=== PATIENT | male | born 1965 | race Caucasian/White ===

== ENCOUNTER 2021-08-29 15:51 | Observation (INO) ==
[2021-08-29 17:41] LABS: Basophils # (auto) 0.04 K/uL (0-0.2); Basophils % (auto) 0.3 %; Eosinophils # (auto) 0.07 K/uL (0-0.5); Eosinophils % (auto) 0.5 %; Hemoglobin 15.5 g/dL (14.0-18.0); Immature Granulocytes # (auto) 0.04 K/uL (0.00-0.02); Immature Granulocytes % (auto) 0.3 %; Lymphocytes # (auto) 1.87 K/uL (1.2-3.4); Lymphocytes % (auto) 13.4 %; Mean Corpuscular Hemoglobin 29.5 pg (25-34); Mean Corpuscular Hgb Conc 33.7 g/dL (32-36); Mean Corpuscular Volume 87.6 fL (80-100); Mean Platelet Volume 10.6 fL (7.4-10.4); Monocytes # (auto) 1.56 K/uL (0.11-0.59); Monocytes % (auto) 11.2 %; Neutrophils # (auto) 10.36 K/uL (1.4-6.5); Neutrophils % (auto) 74.3 %; Platelet Count 242 K/uL (130-400); RDW Coefficient of Variation 12.9 % (11.5-14.5); RDW Standard Deviation 41.4 fL (36.4-46.3); Red Blood Count 5.25 M/uL (4.7-6.1); White Blood Count 13.94 K/uL (4.8-10.8)
[2021-08-29 18:11] LABS: Albumin Level 3.8 gm/dl (3.4-5.0); BUN Creatinine Ratio 21.2 (10-20); Calcium 9.2 mg/dl (8.5-10.1); Creatinine Clr Calc Pharmacy 113.4 ml/min; Est GFR (African American) 112.3 ml/min; Est GFR (Non-African American) 96.9 ml/min; Potassium 3.8 mmol/L (3.5-5.1)
[2021-08-29 18:13] LABS: Bilirubin,Total 0.5 mg/dl (0.2-1); Globulin 3.7 gm/dl (2.5-4.0); Total Protein 7.5 gm/dl (6.4-8.2)
[2021-08-29] MEDS ORDERED: OPTIRAY 320 100ml IV ONE (19:43)
[2021-08-29 20:01] LABS: Appearance Urine Clear (Clear); Bilirubin Urine Negative (Negative); Blood Urine Negative (Negative); Color Urine Yellow; Glucose Urine UA Negative (Negative); Ketones Urine Negative (Negative); Leukocyte Esterase Urine Negative (Negative); Nitrite Urine Negative (Negative); Protein Urine Negative (Negative); Specific Gravity Urine 1.018 (1.000-1.030); Urobilinogen Urine Negative (Negative)
--- NOTE | 2021-08-29 20:14 | Emergency Department Note ---
Impression & Plan Acute appendicitis, RLQ abdominal pain, Leukocytosis ED Provider Note NAME: VINNY MENESES AGE: 56 SEX: M ARRIVES VIA: Walk-In INFORMANT: Patient ED PROVIDER(S): Gelacio Beavers MD CHIEF COMPLAINT: Abdominal pain PLAN: Disposition: Admit MEDICAL DECISION MAKING: The patient is a pleasant 56-year-old gentleman who presents emergency department for evaluation of right lower quadrant pain that has been ongoing for the past 24 hours which she reports began in his right lower quadrant and has remained there. He reports that pain as a 2/10 and is more severe when he is moving around. He denies nausea, vomiting, decreased appetite or inability to eat or drink. He denies any diarrhea or urinary symptoms. He denies blood in his urine. He feels as though he may have had some constipation recently. He denies any prior history of kidney stones. He denies any fevers cough or congestion. On arrival patient is well-appearing in no distress, afebrile stable vital signs. He appears clinically dry. He has mild right lower quadrant tenderness without guarding or rebound. Blood work and CT of the abdomen pelvis was ordered/ performed per critical pathways given the patient's presentation during a time of high volume and acuity. WBC 13.9K nonspecific. H/H and platelets within normal limits. Chemistry without metabolic acidosis. Electrolytes without significant abnormality. Lipase not elevated. UA without evidence of infection. COVID-19, RNA, NAAT test was negative. CT of the abdomen pelvis demonstrates uncomplicated appendicitis. Case was discussed with Sahil Frias general surgery PAC with Dr. Kalina alas who will admit the patient for surgery. Patient was updated at bedside and agrees with the plan. Triage Nursing notes reviewed and agree them. Prior medical records reviewed Vital Signs: reviewed and remarkable for no significant abnormalities Differential diagnosis: Appendicitis, testicular torsion, infections, diverticulitis, UTI, obstruction, mesenteric ischemia, aortic pathology, inflammatory bowel disease, renal colic, PUD, pancreatitis, biliary pathology, hernia, volvulus, constipation, as well as other pathologies. ER treatment provided: See below. Diagnostics interpreted by me: Cardiac Monitoring: An order for continuous cardiac monitoring was placed and demonstrated NSR, 76 bpm, no ectopy. Laboratory studies: See below Imaging studies: See below Consultation(s): Sahil Frias general surgery PAC with Dr. Gilman general surgery who wi ll admit the patient for surgery. HPI: The patient is a pleasant 56-year-old gentleman who presents emergency department for evaluation of right lower quadrant pain that has been ongoing for the past 24 hours which she reports began in his right lower quadrant and has remained there. He reports that pain as a 2/10 and is more severe when he is moving around. He denies nausea, vomiting, decreased appetite or inability to eat or drink. He denies any diarrhea or urinary symptoms. He denies blood in his urine. He feels as though he may have had some constipation recently. He denies any prior history of kidney stones. He denies any fevers cough or congestion. ROS: See above HPI for pertinent positives & negatives. A total of 10 systems reviewed and were otherwise negative. PAST MEDICAL HISTORY:See Below PAST SURGICAL HISTORY:See Below FAMILY HISTORY:See Below SOCIAL HISTORY:See Below HOME MEDICATIONS:See Below ALLERGIES:See Below VITALS:See Below PHYSICAL EXAMINATION: GENERAL: Awake, alert, well-appearing, in no distress HENT: Normocephalic, atraumatic. Oropharynx with dry mucous membranes and otherwise unremarkable. EYES: Normal conjunctiva. Sclera non-icteric. NECK: Supple. No nuchal rigidity. FROM. No JVD. RESPIRATORY: Clear to auscultation. CARDIAC: Regular rate, normal rhythm. Extremities warm and well perfused. Pulses equal. ABDOMEN: Soft, non-distended. Mild right tenderness to palpation. No rebound or guarding. No masses. RECTAL: Deferred. MUSCULOSKELETAL: Chest examination reveals no tenderness. The back is symmetrical on inspection without obvious abnormality. There is no CVA tenderness to palpation. No joint edema. LOWER EXTREMITIES: Calves are equal size bilaterally and non-tender. No edema. No discoloration. NEURO: Normal sensorium. No sensory or motor deficits noted. SKIN: No rash or jaundice noted. Gelacio Beavers MD Past Med/Surg History Medical History Hypertension Family History Other Family history non-contributory Social History Smoking Status: Never smoker Hx Alcohol Use: Yes Alcohol type: beer Hx Substance Use: No Preferred Language: Hebrew Communication Ability: Effective Call Center Trainer Required: No Beliefs That Will Affect Care: None Current Living Situation: Alone Other Information That Helps Us Care for You: No Feels Safe at Home: Yes Safety Concerns: Feels Safe At This Time Assistive Devices: None Allergies Allergies Allergy/AdvReac Type Severity Reaction Status Date / Time No Known Allergies Allergy Unverified 08/29/21 20:44 Home Meds Home Medications Medication Instructions Recorded Confirmed atorvastatin 20 mg tablet 20 mg PO DAILY 08/29/21 08/29/21 lisinopril 20 1 tab PO DAILY 08/29/21 08/29/21 mg-hydrochlorothiazide 25 mg tablet Results & Data (ED) Vital Signs Vital Signs - 24 hr 08/29/21 16:07 08/29/21 20:19 08/29/21 22:14 Temperature 36.5 C Temperature Source Temporal Artery Scan Pulse Rate 90 Pulse Rate [Finger] 78 74 Respiratory Rate 16 20 18 Respiratory Effort / Characteristics Non-Labored Non-Labored Spontaneous Non-Labored Spontaneous Respiratory Depth Normal Normal Normal Blood Pressure 152/84 H Blood Pressure [Left Arm] 148/98 H 150/86 H Blood Pressure Mean 106 Blood Pressure Mean [Left Arm] 114 107 Pulse Oximetry 96 99 98 Oxygen Delivery Method Room Air Room Air Room Air Sepsis Recent Fever Within 48 Hours No Sepsis New/Unexplained Change in Mental Status No Sepsis Action Taken by Nursing No Action Required Laboratory Data Attestation: I reviewed the patient's lab results. Result diagrams: 08/29/21 17:30 08/29/21 17:30 Lab Results 08/29/21 08/29/21 08/29/21 Range/Units 17:30 17:30 17:30 WBC 13.94 H (4.8-10.8) K/uL RBC 5.25 (4.7-6.1) M/uL Hgb 15.5 (14.0-18.0) g/dL Hct 46.0 (42-52) % MCV 87.6 (80-100) fL MCH 29.5 (25-34) pg MCHC 33.7 (32-36) g/dL RDW Std Deviation 41.4 (36.4-46.3) fL RDW Coeff of Mirtha 12.9 (11.5-14.5) % Plt Count 242 (130-400) K/uL MPV 10.6 H (7.4-10.4) fL Immature Gran % (Auto) 0.3 % Neut % (Auto) 74.3 % Lymph % (Auto) 13.4 % [place] % (Auto) 11.2 % Eos % (Auto) 0.5 % Baso % (Auto) 0.3 % Neut # (Auto) 10.36 H (1.4-6.5) K/uL Lymph # (Auto) 1.87 (1.2-3.4) K/uL [place] # (Auto) 1.56 H (0.11-0.59) K/uL Eos # (Auto) 0.07 (0-0.5) K/uL Baso # (Auto) 0.04 (0-0.2) K/uL Immature Gran # (Auto) 0.04 H (0.00-0.02) K/uL Sodium 135 L (136-145) mmol/L Potassium 3.8 (3.5-5.1) mmol/L Chloride 102 (98-107) mmol/L Carbon Dioxide 30 (21-32) mmol/L Anion Gap 3.0 (3-11) BUN 19 H (7-18) mg/dl Creatinine 0.89 (0.6-1.4) mg/dl Est Cr Clr Drug Dosing 113.4 ml/min Est GFR ( Amer) 112.3 ml/min Est GFR (Non-Af Amer) 96.9 ml/min BUN/Creatinine Ratio 21.2 H (10-20) Glucose 109 H (70-99) mg/dl Calcium 9.2 (8.5-10.1) mg/dl Total Bilirubin 0.5 (0.2-1) mg/dl AST 19 (15-37) U/L ALT 38 (12-78) Alkaline Phosphatase 79 (45-117) U/L Total Protein 7.5 (6.4-8.2) gm/dl Albumin 3.8 (3.4-5.0) gm/dl Globulin 3.7 (2.5-4.0) gm/dl Albumin/Globulin Ratio 1.0 (0.9-2) Lipase 160 (73-393) U/L Urine Color Yellow Urine Appearance Clear (Clear) Urine pH 5.0 (4.5-7.5) Ur Specific [place] 1.018 (1.000-1.030) Urine Protein Negative (Negative) Urine Glucose (UA) Negative (Negative) Urine Ketones Negative (Negative) Urine Blood Negative (Negative) Urine Nitrite Negative (Negative) Urine Bilirubin Negative (Negative) Urine Urobilinogen Negative (Negative) Ur Leukocyte Esterase Negative (Negative) SARS-CoV-2, RNA, NAAT (NEGATIVE) 08/29/21 Range/Units 22:06 WBC (4.8-10.8) K/uL RBC (4.7-6.1) M/uL Hgb (14.0-18.0) g/dL Hct (42-52) % MCV (80-100) fL MCH (25-34) pg MCHC (32-36) g/dL RDW Std Deviation (36.4-46.3) fL RDW Coeff of Mirtha (11.5-14.5) % Plt Count (130-400) K/uL MPV (7.4-10.4) fL Immature Gran % (Auto) % Neut % (Auto) % Lymph % (Auto) % [place] % (Auto) % Eos % (Auto) % Baso % (Auto) % Neut # (Auto) (1.4-6.5) K/uL Lymph # (Auto) (1.2-3.4) K/uL [place] # (Auto) (0.11-0.59) K/uL Eos # (Auto) (0-0.5) K/uL Baso # (Auto) (0-0.2) K/uL Immature Gran # (Auto) (0.00-0.02) K/uL Sodium (136-145) mmol/L Potassium (3.5-5.1) mmol/L Chloride (98-107) mmol/L Carbon Dioxide (21-32) mmol/L Anion Gap (3-11) BUN (7-18) mg/dl Creatinine (0.6-1.4) mg/dl Est Cr Clr Drug Dosing ml/min Est GFR ( Amer) ml/min Est GFR (Non-Af Amer) ml/min BUN/Creatinine Ratio (10-20) Glucose (70-99) mg/dl Calcium (8.5-10.1) mg/dl Total Bilirubin (0.2-1) mg/dl AST (15-37) U/L ALT (12-78) Alkaline Phosphatase (45-117) U/L Total Protein (6.4-8.2) gm/dl Albumin (3.4-5.0) gm/dl Globulin (2.5-4.0) gm/dl Albumin/Globulin Ratio (0.9-2) Lipase (73-393) U/L Urine Color Urine Appearance (Clear) Urine pH (4.5-7.5) Ur Specific [place] (1.000-1.030) Urine Protein (Negative) Urine Glucose (UA) (Negative) Urine Ketones (Negative) Urine Blood (Negative) Urine Nitrite (Negative) Urine Bilirubin (Negative) Urine Urobilinogen (Negative) Ur Leukocyte Esterase (Negative) SARS-CoV-2, RNA, NAAT NEGATIVE (NEGATIVE) Administered Medications Lactated Ringer's (Lr) 1,000 mls @ 75 mls/hr IV .[id number] JUAN M Stop: 09/29/21 00:52 Last Admin: 08/30/21 02:31 Dose: 75 mls/hr Documented by: [id number] Discontinued Medications Sodium Chloride (Nss 1000ml) 1,000 mls @ 999 mls/hr IV .[id number] ONE Stop: 08/29/21 21:49 Last Infusion: 08/29/21 22:28 Dose: 0 mls/hr Documented by: [id number] Admin: 08/29/21 21:24 Dose: 999 mls/hr Documented by: [id number] Acetaminophen (Ofirmev) 1,000 mg in 100 mls @ 400 mls/hr IV NOW STA Stop: 08/29/21 21:03 Last Infusion: 08/29/21 21:39 Dose: 0 mls/hr Documented by: [id number] Admin: 08/29/21 21:24 Dose: 400 mls/hr Documented by: [id number] Cefoxitin Sodium (Mefoxin) 2,000 mg in 60 mls @ 100 mls/hr IV NOW STA Stop: 08/29/21 21:24 Last Infusion: 08/29/21 22:15 Dose: 0 mls/hr Documented by: [id number] Admin: 08/29/21 21:36 Dose: 100 mls/hr Documented by: [id number] Ioversol (Optiray 320 100ml) 91 ml IV ONCE ONE Stop: 08/29/21 19:44 Last Admin: 08/29/21 19:43 Dose: 91 ml Documented by: [id number] Lidocaine/Epinephrine (Lidocaine/Epinephrine 1% 20 Ml Vial) Confirm Administered Dose 20 ml .ROUTE .K-MED ONE Stop: 08/29/21 21:43 Last Admin: 08/29/21 23:46 Dose: 20 ml Documented by: [id number] Imaging Data Radiologist's Impression: Abdomen/Pelvis CT 08/29/21 18:[address] WITH IV CONTRAST CT DOSE: 507.53 mGy.cm HISTORY: Acute right lower quadrant abdominal pain RLQ pain TECHNIQUE: Multiaxial CT images of the abdomen and pelvis were performed following the IV administration of 91 cc of Optiray, A dose lowering technique was utilized adhering to the principles of ALARA. COMPARISON STUDY: Thoracic spine radiographs 02/10/2006 FINDINGS: Clear lung bases. No pneumatosis or pneumoperitoneum. The imaged inferior cardiac chambers are unremarkable. The spleen is unremarkable with large adjacent splenule. Pancreas, adrenal glands, contracted gallbladder and liver appear unremarkable. Patency of the portal vein. Unremarkable kidneys. No hydronephrosis. Mild urinary bladder distention with prostamegaly. Aorta and IVC are unremarkable. No adenopathy. No bowel obstruction. Mild fecal retention. The appendix is dilated measuring up to 10 mm and fluid-filled with mucosal hyperemia and wall thickening with periappendiceal stranding. No abscess or perforation. Mild wall thickening involving several loops of ileum is likely secondary to partial distention. Unremarkable soft tissues. There is no acute fracture IMPRESSION: 1. Acute appendicitis. No evidence of perforation or abscess. 2. No bowel obstruction. ACT 112: Negative or not required by law. The above report was generated using voice recognition software. It may contain grammatical, syntax or spelling errors. Electronically signed by: Jer Cifuentes M.D. 08/29/2021 8:41 PM Discharge Plan Visit Data Chief Complaint: Abdominal Pain Stated Complaint: LRQ ABDOMINAL PAIN Discharge Problem: Acute appendicitis, RLQ abdominal pain, Leukocytosis Patient Disposition: Still a Patient Discharge Instructions Interventions: ED Discharge Assessment Last Done: 08/29/21 22:32 Discharge Problem: Acute appendicitis Qualifiers: Acute appendicitis type: with localized peritonitis Appendicitis gangrene presence: without gangrene Appendicitis perforation presence: without perforation Appendicitis abscess presence: without abscess Qualified Code(s): K35.30 - Acute appendicitis with localized peritonitis, without perforation or gangrene Leukocytosis Qualifiers: Leukocytosis type: other Qualified Code(s): D72.828 - Other elevated white blood cell count
--- NOTE | 2021-08-29 20:42 | CT Scan Report ---
ABDOMEN AND PELVIS CT WITH IV CONTRAST CT DOSE: 507.53 mGy.cm HISTORY: Acute right lower quadrant abdominal pain RLQ pain TECHNIQUE: Multiaxial CT images of the abdomen and pelvis were performed following the IV administrat ion of 91 cc of Optiray, A dose lowering technique was utilized adhering to the principles of ALARA. COMPARISON STUDY: Thoracic spine radiographs 02/10/2006 FINDINGS: Clear lung bases. No pneumatosis or pneumoperitoneum. The imaged inferior cardiac chambers are unremarkable. The spleen is unremarkable with large adjacent splenule. Pancreas, adrenal glands, contracted gallbladder and liver appear unremarkable. Patency of the portal vein. Unremarkable kidney s. No hydronephrosis. Mild urinary bladder distention with prostamegaly. Aorta and IVC are unremarkab le. No adenopathy. No bowel obstruction. Mild fecal retention. The appendix is dilated measuring up to 10 mm and fluid-f illed with mucosal hyperemia and wall thickening with periappendiceal stranding. No abscess or perfor ation. Mild wall thickening involving several loops of ileum is likely secondary to partial distentio n. Unremarkable soft tissues. There is no acute fracture IMPRESSION: 1. Acute appendicitis. No evidence of perforation or abscess. 2. No bowel obstruction. ACT 112: Negative or not required by law. The above report was generated using voice recognition software. It may contain grammatical, syntax o r spelling errors. Electronically signed by: Jer Cifuentes M.D. 08/29/2021 8:41 PM
[2021-08-29] MEDS ORDERED: cefOXitin 2,000 MG/60 ML BAG IV STA (20:49)
[2021-08-29] MEDS ORDERED: ACETAMINOPHEN 1,000 MG/100 ML VIAL IV STA (20:49)
[2021-08-29] MEDS ORDERED: SODIUM CHLORIDE 0.9% 1000ML 1,000 ML IV ONE (20:49)
[2021-08-29] MEDS ORDERED: MoRPHine SULFATE 4 MG/ML 1 ML CARP\\VIAL IV PRN (20:52)
[2021-08-29] MEDS ORDERED: MoRPHine SULFATE 2 MG/ML CARP IV PRN (20:52)
[2021-08-29] MEDS ORDERED: ONDANSETRON INJ 2 MG/ML 2 ML VIAL IV PRN ×2 (20:54→22:45)
--- NOTE | 2021-08-29 21:10 | History & Physical Report ---
Date of Service August 29, 2021 Assessment & Plan (1) Acute appendicitis: Plan: Plan for surgery this evening Pt. consented fot laparoscopic, possible open appendectomy -COVID test pending -Abx. ordered History of Present Illness Chief Complaint: Abdominal Pain Primary Care Provider: Caren Pastor 56 year old male developed RLQ abdominal pain that started 24 hours ago. He notes pain is non-radiating and worse with movement and improved with lying still. He denies fevers, shakes, chills. No N/V. He denies prior abdominal surgeries. His most recent oral intake was 2:00pm today. He leads an active lifestyle exercising daily. With his daily lifestyle he denies CP or SOB. At the time of my exam he was in no distress. Allergies Allergy/AdvReac Type Severity Reaction Status Date / Time No Known Allergies Allergy Unverified 08/29/21 20:44 Home Medications Medication Instructions Recorded Confirmed Type atorvastatin 20 mg tablet 20 mg PO DAILY 08/29/21 08/29/21 History lisinopril 20 1 tab PO DAILY 08/29/21 08/29/21 History mg-hydrochlorothiazide 25 mg tablet Past Med/Surg History Social History Smoking Status: Never smoker Feels Safe at Home: Yes Review of Systems Constitutional: no fever and no chills Eyes: + corrective lenses Ear, Nose, Mouth, Throat: no ear pain Respiratory: no cough and no dyspnea Cardiovascular: no chest pain Gastrointestinal: as per Subjective / HPI and + abdominal pain; no nausea and no vomiting Genitourinary: no dysuria Musculoskeletal: no back pain Integumentary: no rash Neurologic: no localized weakness Physical Exam Constitutional: WD/WN, vitals as above Eyes: no conjunctival abnormality ENMT: Ears: no hearing impairment and no external ear abnormality Mouth: no oropharynx abnormality Neck: trachea midline Respiratory: normal respiratory effort, lungs clear to auscultation Cardiovascular: Rate/Rhythm: regular rate and regular rhythm Gastrointestinal (Abdomen): soft and non-distended. BS are present. Pain with palpation over McBurnery's point with associated rebound tenderness. Musculoskeletal: no calf pain Skin: normal turgor Neurologic: moves all extremities Psychiatric: A+Ox3, euthymic affect Results & Data Results & Data (MN) Vital Signs (Past 12 Hours) Vital Signs Temp Pulse Pulse Resp BP BP Pulse Ox 08/29/21 20:19 78 20 148/98 H 99 08/29/21 16:07 36.5 C 90 16 152/84 H 96 Supervising Physician Co-Signing Physician Notes As per Inder Frias physician drug safety assistant Patient examined tenderness rebound right lower quadrant rest of the abdomen is negative CT scan and lab reviewed We will proceed with laparoscopic appendectomy possible open risk and complication was explained to the patient occluding bleeding infection converting to an open procedure and anticipated hospitalization and recovery time we would like to proceed accordingly All questions answered permit signed antibiotic on board surgery notified PG Care Time/CCT Total # of Minutes Spent Total Time Spent with Patient: Total time spent is greater than 50% in coordination of care (as documented) at patient's floor/unit and/or counseling patient: Coding Level of Care Code INT OBSERVATION CARE 70M LVL 3 Diagnoses Acute appendicitis K35.80
[2021-08-29] MEDS ORDERED: LIDOCAINE/EPINEPHRINE 1% 20 ML VIAL ONE (21:42)
[2021-08-29] MEDS ORDERED: fentaNYL citrate 100 MCG/2 ML VIAL ONE (22:38)
[2021-08-29] MEDS ORDERED: MIDAZOLAM HCL 1 MG/ML 2ML VIAL ONE (22:38)
--- NOTE | 2021-08-29 22:44 | Anesthesiology Consultation ---
Date of Service August 29, 2021 Assessment & Plan Chart Review Chart Review: Acceptable Risk for Surgery Consults Requested none History Surgery Operation Date: 08/29/21 23:00 Proposed Procedures p Laparoscopic Appendectomy - Mumtaz Gilman MD, FACS Height/Weight Height: 6 ft 3 in Weight: 100.2 kg Allergies Allergy/AdvReac Type Severity Reaction Status Date / Time No Known Allergies Allergy Unverified 08/29/21 20:44 Medications Home Medications Medication Instructions Recorded Confirmed Last Taken atorvastatin 20 mg tablet 20 mg PO DAILY 08/29/21 08/29/21 08/29/21 lisinopril 20 1 tab PO DAILY 08/29/21 08/29/21 08/29/21 mg-hydrochlorothiazide 25 mg tablet Social History Smoking Status: Never smoker Physical Exam Vital Signs Last Vital Signs Temp 36.5 C 08/29/21 16:07 Pulse 74 08/29/21 22:14 Resp 18 08/29/21 22:14 BP 150/86 H 08/29/21 22:14 Pulse Ox 98 08/29/21 22:14 Testing Laboratory Results 08/29/21 17:30 08/29/21 17:30 Urine Color Yellow 08/29/21 17:30 Urine Appearance Clear (Clear) 08/29/21 17:30 Urine pH 5.0 (4.5-7.5) 08/29/21 17:30 Ur Specific [place] 1.018 (1.000-1.030) 08/29/21 17:30 Urine Protein Negative (Negative) 08/29/21 17:30 Urine Glucose (UA) Negative (Negative) 08/29/21 17:30 Urine Ketones Negative (Negative) 08/29/21 17:30 Urine Nitrite Negative (Negative) 08/29/21 17:30 Ur Leukocyte Esterase Negative (Negative) 08/29/21 17:30
[2021-08-29] MEDS ORDERED: KETOROLAC 30 MG/ML VIAL IV PRN (22:45)
[2021-08-29] MEDS ORDERED: ePHEDrine sulfate 50 MG/ML AMP IV PRN (22:45)
[2021-08-29] MEDS ORDERED: ATROPINE SULFATE 0.1 MG/ML 10ML SYR IV PRN (22:45)
[2021-08-29] MEDS ORDERED: HYDROmorphone INJ 2 MG/ML SYR/VIAL IV PRN (22:45)
[2021-08-29] MEDS ORDERED: fentaNYL citrate 100 MCG/2 ML VIAL IV PRN (22:45)
[2021-08-29] MEDS ORDERED: PROPOFOL IV EMULSION 10 MG/ML 20 ML VIAL IV ONE (23:13)
[2021-08-29] MEDS ORDERED: ROCURONIUM BROMIDE 10 MG/ML 5 ML VIAL IV ONE (23:16)
[2021-08-29] MEDS ORDERED: DEXAMETHASONE SOD INJ 4 MG/ML VIAL ONE (23:16)
[2021-08-29] MEDS ORDERED: ONDANSETRON INJ 2 MG/ML 2 ML VIAL ONE (23:17)
[2021-08-29] MEDS ORDERED: LIDOCAINE 2% 2 ML VIAL/AMP(20MG/ML) INFIL ONE (23:18)
--- NOTE | 2021-08-29 23:46 | Post Operative Brief Note ---
PG Immediate Post Op with CF Date of Surgery August 29, 2021 Pre & Post Diagnosis Operation Date: 08/29/21 23:00 Pre-Op Diagnosis: Acute appendicitis. Post-Op Diagnosis: Acute appendicitis. I identified the patient and participated in the time-out.: Yes Procedure Operation Date: 08/29/21 23:00 Actual Procedures p Laparoscopic Appendectomy - Mumtaz Gilman MD, FACS Surgeon Mumtaz Gilman MD, FACS Real Estate Closer b isaias NESBITT Estimated Blood Loss 5 Findings Consistent with Post-Op Diagnosis Specimens Specimen Description: A. Appendix.
--- NOTE | 2021-08-29 23:55 | Operative Report ---
Post Operative Report Pre & Post Diagnosis Operation Date: 08/29/21 23:00 Pre-Op Diagnosis: Acute appendicitis. Post-Op Diagnosis: Acute appendicitis. I identified the patient and participated in the time-out.: Yes Procedure Operation Date: 08/29/21 23:00 Actual Procedures p Laparoscopic Appendectomy - Mumtaz Gilman MD, FACS Patient was brought into the operating theater supine position general endotracheal anesthesia requiring a glide scope for ET placement systemic antibiotics on board the abdomen was prepped Betadine solution properly draped patient identified timeout was had small incision was made supraumbilically sufficient to accommodate the Veress needle followed by CO2 followed by 5 mm trocar point of entry spectrin and identified this point we imaged right lower quadrant where we are not able to see the appendix patient has some small bowel loops down in that area although no fibrinous exudate or any evidence of gross fluid therefore on direct realization a 5 mm right subcostal port was placed with preemptive local analgesic and at this point we were able then to elevate the cecum could not identify the appendix we could see the terminal ileum and we converted the 5 mm umbilical port under regularization by enlarging the incision dilating the 5 mm tract and placed a 12 mm trocar the 5 mm port was then placed in left lower quadrant on direct visual exam. With preemptive local analgesic the camera was placed in left lower quadrant patient rotated to the left using the umbilical and right upper quadrant port we able to elevate the cecum at this point the patient had some prominence adhesion down laterally from the cecum to the abdominal wall which we there were broad-based we incised him and then with this we were able to identify the patient had a very thickened appendix at its takeoff were able to then elevated and created a window between the appendix taking it off the cecum when we used a blue load RONALD once this is been secured we then divided the mesentery to the appendix using 10 mm clips taking bites to secure all the mesoappendix. The area was checked for stasis appears satisfactory the appendix was thickened mostly in the takeoff of the tooth two thirds of the way but there is no evidence of any rupture there was no fluid in the abdomen and there was no fibrinous exudate the appendix was placed in Endopouch and taken out intact through the umbilical port we palpated over the back table. We then reapplied the 12 mm port suctioned out the area hemostasis was excellent we will place the patient in reverse Trendelenburg position and suction the gutter in the pelvic area and the camera was placed in the right upper quadrant trocar site to visualize the right and left lower quadrant there was no evidence of any bleeding as we removed that under direct visualization the trocar and we similar to the umbilical trocar and last the right upper quadrant trocar we closed the umbilical opening the fascial opening with interrupted [id number] two 0-0 PDS the other ones Monocryl for subcutaneous tissue Steri-Strips applied procedure was tolerated well by the patient estimate blood loss 5 cc Addendum Inder Frias physician medical services assistant was present throughout the case and helped the retraction exposure camera work and wound closure Surgeon Mumtaz Gilman MD, FACS Patient Accounts Coordinator malick NESBITT Estimated Blood Loss 5 Findings Consistent with Post-Op Diagnosis Acute appendicitis Specimens Appendix Indications Acute appendicitis right lower quadrant pain Description of Procedure merda I attest to the content of the Intraoperative Record and any orders documented therein. Any exceptions are noted below.
[2021-08-30] MEDS ORDERED: ACETAMINOPHEN 1,000 MG/100 ML VIAL IV PRN (00:53)
[2021-08-30] MEDS ORDERED: ONDANSETRON INJ 2 MG/ML 2 ML VIAL IV PRN (00:53)
[2021-08-30] MEDS ORDERED: MoRPHine SULFATE 4 MG/ML 1 ML CARP\\VIAL IV PRN (00:53)
[2021-08-30] MEDS ORDERED: LACTATED RINGER'S 1,000 ML IV SCH (00:53)
--- NOTE | 2021-08-30 00:59 | Anesthesiology Progress Note ---
Date of Service August 30, 2021 Anesthesia Post Procedure Vital Signs Vital Signs: Temp Pulse Pulse Pulse Resp BP BP 08/30/21 00:40 60 18 151/85 H 08/30/21 00:30 37.1 C 63 15 160/91 H 08/30/21 00:20 59 L 15 157/88 H 08/30/21 00:10 68 16 171/83 H 08/30/21 00:03 36.5 C 98 H 19 160/97 H 08/29/21 22:14 74 18 150/86 H 08/29/21 20:19 78 20 148/98 H 08/29/21 16:07 36.5 C 90 16 152/84 H Pulse Ox 08/30/21 00:40 98 08/30/21 00:30 99 08/30/21 00:20 98 08/30/21 00:10 99 08/30/21 00:03 98 08/29/21 22:14 98 08/29/21 20:19 99 08/29/21 16:07 96 Pain Intensity Right Abdomen: Pain Intensity: 4 Transfer of Care Handoff Completed per policy Notes Mental Status: alert / awake / arousable and participated in evaluation Patient Amnestic to Procedure: Yes Nausea / Vomiting: adequately controlled Pain: adequately controlled Airway Patency, RR, SpO2: stable & adequate BP & HR: stable & adequate Hydration State: stable & adequate Anesthetic Complications: no major complications apparent
[2021-08-30] MEDS: cefOXitin 2,000 MG in DEXTROSE 5% 50 ML IV SCH ×2 (03:46→10:47)
--- NOTE | 2021-08-30 05:21 | Surgery Progress Note ---
Date of Service August 30, 2021 Assessment & Plan (1) Acute appendicitis: Plan: Status post laparoscopic appendectomy on 08/29/2021 (postop day #1) Provide analgesics Provide antiemetics Maintain patient on cefoxitin while hospitalized Continue clear liquids for the present time with plans to advance as tolerated We will have patient ambulate later this morning Likely discharge home later today with plans to follow-up with Dr. Gilman in outpatient clinic in 1 to 2 weeks Admission and Anticipated Discharge Date Admission Date: August 29, 2021 Supervising Physician Co-Signing Physician Notes As per Inder Dominguez physician surgeon assistant Patient resting comfortably alert coherent having no abdominal discomfort dressing intact abdomen benign except for minimal discomfort from the surgery The operative findings discussed with the patient Okay this discharge the patient after breakfast instructions given Patient to drive home short distance from the hospital advised not to take any narcotics prior to doing so Subjective Patient notes he is doing well. He denies any nausea or vomiting. He has not passed any flatus or had a bowel movement since surgery. He thus far is tolerating clear liquids. He notes his appetite has not entirely returned to normal and does not feel very hungry at the present time. He denies any difficulty urinating. He has not been out of bed yet since his surgery. Physical Exam Gastrointestinal (Abdomen): Abdomen is soft and nondistended. Bowel sounds are hypoactive. He has appropriate pain at his surgical incisions. His 3 surgical incisions from his laparoscopy are covered with dressings that are clean, dry, intact. Results & Data ([facility]) Vital Signs (Past 12 Hours) Vital Signs Temp Pulse Pulse Resp BP Pulse Ox 08/30/21 03:45 37.3 C 91 H 16 133/71 95 08/30/21 02:45 37.2 C 70 16 138/83 94 08/30/21 01:49 36.9 C 76 16 136/79 94 08/30/21 01:15 36.8 C 65 16 139/73 98 08/30/21 00:45 37.1 C 60 16 148/80 H 99 08/30/21 00:40 60 18 151/85 H 98 08/30/21 00:30 37.1 C 63 15 160/91 H 99 08/30/21 00:20 59 L 15 157/88 H 98 08/30/21 00:10 68 16 171/83 H 99 08/30/21 00:03 36.5 C 98 H 19 160/97 H 98 08/29/21 22:14 74 18 150/86 H 98 08/29/21 20:19 78 20 148/98 H 99 PG Care Time/CCT Total # of Minutes Spent Total Time Spent with Patient: Total time spent is greater than 50% in coordination of care (as documented) at patient's floor/unit and/or counseling patient: Coding Level of Care Code None Diagnoses Acute appendicitis K35.30 Acute appendicitis type: with localized peritonitis Appendicitis abscess presence: without abscess Appendicitis gangrene presence: without gangrene Appendicitis perforation presence: without perforation (1) Acute appendicitis Acute appendicitis type: with localized peritonitis Appendicitis abscess presence: without abscess Appendicitis gangrene presence: without gangrene Appendicitis perforation presence: without perforation Qualified Code(s): K35.30 - Acute appendicitis with localized peritonitis, without perforation or gangrene
[2021-08-30] MEDS ORDERED: ATORVASTATIN 20 MG TAB PO SCH (09:00)
[2021-08-30] MEDS ORDERED: lisinopril 20 MG TAB PO SCH (09:00)
--- NOTE | 2021-09-01 20:07 | Discharge Summary ---
Date of Service September 01, 2021 Admission HPI Per Admitting Provider 56 year old male developed RLQ abdominal pain that started 24 hours ago. He notes pain is non-radiating and worse with movement and improved with lying still. He denies fevers, shakes, chills. No N/V. He denies prior abdominal surgeries. His most recent oral intake was 2:00pm today. He leads an active lifestyle exercising daily. With his daily lifestyle he denies CP or SOB. At the time of my exam he was in no distress. Discharge Data Consultations 08/29/21 20:57 ED Decision to Admit Stat Procedures Performed Operation Date: 08/29/21 23:00 Actual Procedures p Laparoscopic Appendectomy - Mumtaz Gilman MD, [facility] Hospital Course (1) Acute appendicitis: Patient was admitted to the hospital on date of admission secondary acute appendicitis. On date of admission he was taken to the operating room with Dr. Gilman performed a laparoscopic appendectomy. The patient was given appropriate antibiotics perioperatively and postoperatively. His diet was advanced as tolerated which occurred without incident. The patient was deemed stable for discharge home on postoperative day #1. He was given appropriate wound care, diet, and activity instructions. He was instructed to follow-up with Dr. Gilman in the office in 1 to 2 weeks. Coding Level of Care Code None Diagnoses Acute appendicitis K35.30 Acute appendicitis type: with localized peritonitis Appendicitis abscess presence: without abscess Appendicitis gangrene presence: without gangrene Appendicitis perforation presence: without perforation
== END 2021-08-30 12:57 | disposition home or self-care (01) ==
LOC: ED 15:51 → 3N 22:32 → OR 22:32
DX: Z79.899 Other long term (current) drug therapy; I10 Essential (primary) hypertension; K35.30 Acute appendicitis with localized peritonitis, without perforation or gangrene; Z20.822 Contact with and (suspected) exposure to COVID-19